=== PATIENT | female | born 1970 | race Caucasian/White ===

== ENCOUNTER 2018-05-05 00:30 | Emergency (ER) | payer MEDICAID, OTHER ==
--- NOTE | 2018-05-05 01:06 | EDPHY ---
H & P Stated Complaint: combative irritable Time Seen by Provider: 05/05/18 00:38 HPI/ROS: Chief Complaint: Altered mental status, combative HPI: 48-year-old homeless female brought in by EMS after she was found to be combative and agitated. EMS states they were called by police because the patient was aggressive and combative. They administered 10 mg of Haldol IM patient is much calmer now. She denies drinking alcohol. Patient states she has been having increasing run is with the police and is getting very angry and agitated. She denies any other drug use. She did not hit her head. No loss of consciousness. Is currently complaining of feeling very angry and upset but denies any other physical complaints. ROS: 10 point Review of Systems is negative except as noted in the HPI. Social History: Positive smoking, denies alcohol, does use marijuana Family History: non-contributory Physical Exam: Gen: Awake, Alert, No Distress HEENT: Nose: no rhinorrhea Eyes: PERRLA, EOMI Mouth: Moist mucosa Neck: Supple, no JVD Chest: nontender, lungs clear to auscultation Heart: S1, S2 normal, no murmur Abd: Soft, non-tender, no guarding Back: no CVA tenderness, no midline tenderness Ext: no edema, non-tender Skin: no rash Neuro: CN II-XII intact, Sensation grossly intact, Strength 5/5 in bilateral upper and lower extremities - Personal History Current Tetanus/Diphtheria Vaccine: Yes Current Tetanus Diphtheria and Acellular Pertussis (TDAP): Yes - Medical/Surgical History Hx Asthma: No Hx Chronic Respiratory Disease: No Hx Diabetes: No Hx Cardiac Disease: No Hx Renal Disease: No Hx Cirrhosis: No Hx Alcoholism: No Hx HIV/AIDS: No Hx Splenectomy or Spleen Trauma: No - Social History Smoking Status: Current some day smoker Constitutional: Initial Vital Signs Temperature (C) 36.6 C 05/05/18 00:44 Heart Rate 104 H 05/05/18 00:44 Respiratory Rate 18 05/05/18 00:44 Blood Pressure 115/89 H 05/05/18 00:44 O2 Sat (%) 96 05/05/18 00:44 O2 Delivery Mode Room Air Allergies/Adverse Reactions: No Known Allergies Allergy (Unverified 05/05/18 00:43) Home Medications: Medication Instructions Recorded FLUoxetine [Prozac 20 MG (*)] 20 mg PO DAILY 05/05/18 Medical Decision Making ED Course/Re-evaluation: 48-year-old woman was agitated and combative with police. She received Haldol. She is awake alert and answering questions appropriately at this time. She is not intoxicated. She has no physical complaints. Will discharge with follow -up as an outpatient for any concerns. Departure - Departure Disposition: Home, Routine, Self-Care Clinical Impression: Aggressive behavior Condition: Good Instructions: Normal Exam (ED) Additional Instructions: Follow up with [facility] for any concerns. Referrals: [facility],. [Clinic] - As per Instructions
[2018-05-05 02:42] VITALS: BP 112/72
== END 2018-05-05 03:14 | disposition home or self-care (01) ==
LOC: EDBD 00:30
DX: R41.82 Altered mental status, unspecified (principal); F91.8 Other conduct disorders; F17.200 Nicotine dependence, unspecified, uncomplicated